=== PATIENT | female | born 1950 | race Caucasian/White ===

== ENCOUNTER → 2016-09-05 | Outpatient (CLI) | payer MEDICARE ==
--- NOTE | 2016-09-05 14:27 | US ---
EXAMINATION TYPE: US thyroid st tissue head/neck DATE OF EXAM: 09/05/2016 1:36 PM COMPARISON: 07/28/2015 CLINICAL HISTORY: 66-year-old female E04.1 Thyroid nodule. Follow-up thyroid nodules, left thyroidect harsha. TECHNIQUE: Multiple sonographic images of the thyroid gland are obtained. FINDINGS: GLAND SIZE: Right Lobe: 5.2 x 1.9 x 2.2 cm Overall Parenchyma: homogenous Left Lobe: surgically absent NODULES RIGHT: # of nodules measured on right: 3 1. 2.3 X 1.0 x 1.5 cm hypoechoic solid nodule at the mid/lower pole with well-defined margins. Thi s nodule is wider than tall and shows intranodular vascularity. Prior size: 2.1 x 1.0 x 1.4 cm 2. 0.6 X 0.6 x 0.6 cm hypoechoic solid nodule at the mid pole with well-defined margins; with periph eral calcification. This nodule shows no intranodular vascularity. Prior size: 0.5 x 0.6 x 0.5 cm 3. 0.6 X 0.4 x 0.4 cm colloid cyst at the lower pole. This shows no intranodular vascularity. Prior size: 0.5 x 0.3 x 0.3 cm LEFT: # of nodules measured on left: 0 ISTHMUS: # of nodules measured in the isthmus: 0 Bilateral neck scanned, no evidence of lymphadenopathy. IMPRESSION: 1. Status post left thyroidectomy. 2. The dominant solid nodule in the right lobe is stable to minimally larger at 2.3 x 1.5 cm versus 2 .1 x 1.4 cm, previously.
== END | disposition home or self-care (01) ==
LOC: RADUSWWP 13:20
PROVIDERS: ATTEND Internal Medicine
DX: E04.1 Nontoxic single thyroid nodule (principal); Z98.890 Other specified postprocedural states
CPT/HCPCS: 76536

== ENCOUNTER → 2017-09-01 | Outpatient (CLI) | payer MEDICARE ==
--- NOTE | 2017-09-01 16:01 | US ---
EXAMINATION TYPE: US thyroid st tissue head/neck DATE OF EXAM: 09/01/2017 COMPARISON: 09/05/2016 CLINICAL HISTORY: E04.1 THYROID NODULE. Left thyroid and isthmus removed x 40 years ago. Follow up n odules. No thyroid medication. GLAND SIZE: Right Lobe: 4.4 x 2.1 x 1.7 cm Overall Parenchyma: homogenous Left Lobe: Surgically absent Isthmus Thickness: Surgically absent NODULES RIGHT: # of nodules measured on right: 3 1. 2.5 X 1.9 x 1.1 cm hypoechoic solid nodule at the mid/lower pole with well-defined margins. Thi s nodule is taller than wide and shows intranodular vascularity. Prior size: 2.3 x 1.0 x 1.5 cm 2. 0.6 X 0.6 x 0.6 cm hypoechoic solid nodule at the mid pole with well-defined margins with periphe ral calcification. This nodule shows no intranodular vascularity. Prior size: 0.6 x 0.6 x 0.6 cm 3. 0.6 X 0.5 x 0.4 cm hypoechoic cystic nodule at the lower pole with well-defined margins. This no dule is taller than wide and shows no intranodular vascularity. Prior size: 0.6 x 0.5 x 0.4 cm Left thyroid and isthmus are surgically absent Bilateral neck scanned, no evidence of lymphadenopathy. IMPRESSION: 1. Changes of left-sided thyroid lobectomy 2. Stable nonspecific right-sided. Thyroid nodules. The need to biopsy should be made on a clinical b asis.
== END | disposition home or self-care (01) ==
LOC: RADUSWWP 15:26
PROVIDERS: ATTEND Internal Medicine
DX: E04.2 Nontoxic multinodular goiter (principal); Z98.890 Other specified postprocedural states
CPT/HCPCS: 76536

== ENCOUNTER → 2018-11-07 | Outpatient (CLI) | payer MEDICARE ==
--- NOTE | 2018-11-08 06:11 | US ---
EXAMINATION TYPE: US thyroid st tissue head/neck DATE OF EXAM: 11/07/2018 COMPARISON: US 09/01/2017 CLINICAL HISTORY: 68-year-old female E04.1 Thyroid Nodule. TECHNIQUE: Multiple sonographic images of the thyroid gland are obtained. FINDINGS: GLAND SIZE: Right Lobe: 4.9 x 2.1 x 2.2 cm Overall Parenchyma: homogenous Left Lobe: Surgically absent Isthmus Thickness: 0.2 cm NODULES RIGHT: # of nodules measured on right: 3 1. 2.5 X 1.6 x 1.6 cm hypoechoic solid nodule at the mid pole with well-defined margins. This nodu le is wider than tall and shows intranodular vascularity. Prior size: 2.5 x 1.9 x 1.1 cm 2. 0.6 calcification at the mid pole with well-defined margins; . This nodule is wider than tall and shows no intranodular vascularity. Prior size: 0.6 cm 3. 0.7 X 0.4 x 0.7 cm cyst at the mid pole with well-defined margins. This nodule is wider than renny l and shows no intranodular vascularity. Prior size: 0.6 x 0.5 x 0.4 cm LEFT: # of nodules measured on left: 0 ISTHMUS: # of nodules measured in the isthmus: 0 Bilateral neck scanned, no evidence of lymphadenopathy. IMPRESSION: 1. Status post left thyroidectomy. 2. Dominant solid nodule in the right lobe measures 2.5 x 1.6 x 1.6 cm versus 2.5 x 1.9 x 1.1 cm, not significantly changed in the interval.
== END | disposition home or self-care (01) ==
LOC: RADUSWWP 16:02
PROVIDERS: ATTEND Internal Medicine
DX: E04.1 Nontoxic single thyroid nodule (principal); E89.0 Postprocedural hypothyroidism
CPT/HCPCS: 76536

== ENCOUNTER 2019-02-27 23:22 | Emergency (ER) | payer MEDICARE ==
[2019-02-27 23:30] VITALS: RESP 18; TEMP 97.8
[2019-02-27 23:52] LABS: Appearance,Urine Cloudy (Clear); Bilirubin,Urine Negative (Negative); Blood,Urine Large (Negative); Color,Urine Light Brown; Glucose,Urine (UA) Negative (Negative); Ketones,Urine Negative (Negative); Leukocyte Esterase,Urine Large (Negative); Nitrite,Urine Negative (Negative); PH, Urine 7.5 (5.0-8.0); Protein,Urine 2+ (Negative); RBC,Urine >182 /hpf (0-5); Specific Gravity,Urine 1.012 (1.001-1.035); Urobilinogen,Urine <2.0 mg/dL (<2.0)
[2019-02-27] MEDS ORDERED: NITROFURANTOIN MONOHYD/M-CRYST 100 MG CAP PO STA (23:52)
[2019-02-27] MEDS ORDERED: HYDROcodone/APAP 5-325MG 1 EACH TAB PO STA (23:52)
[2019-02-27] MEDS ORDERED: PHENAZOPYRIDINE 200 MG TAB PO STA (23:52)
--- NOTE | 2019-02-28 00:29 | ED ---
Female Urogenital HPI - General Chief complaint: Urogenital Stated complaint: Poss UTI Time Seen by Provider: 02/27/19 23:34 Source: patient, family, RN notes reviewed, old records reviewed Mode of arrival: ambulatory Limitations: no limitations - History of Present Illness Initial comments: Patient is a 68-year-old female presents emergency department today for concern for 2 hours of dysuria and burning sensation in her urethra. She reports she's had history of UTIs in the past. She denies any flank pain or significant abdominal pain. Patient reports she's had polyuria today. She reports the end of her urination she has a severe pain. - Related Data Home Medications Medication Instructions Recorded Confirmed Aspirin 81 mg PO DAILY 01/02/14 01/07/14 Atorvastatin Calcium [Lipitor] 10 mg PO DAILY 01/02/14 01/07/14 Bisoprol/Hydrochlorothiazide [Ziac 1 each PO DAILY 01/02/14 01/07/14 5-6.25 MG] Cyanocobalamin [Vitamin B-12] 1,000 mcg PO DAILY@1200 01/02/14 01/07/14 Fish Oil/Dha/Epa [Fish Oil 1,200 1 each PO DAILY 01/02/14 01/07/14 mg Fish Oil] Ubidecarenone [Coenzyme Q10] 100 mg PO DAILY 01/02/14 01/07/14 Previous Rx's Medication Instructions Recorded Nitrofurantoin Monohyd/M-Cryst 100 mg PO Q12HR #14 cap 02/28/19 [Macrobid] Phenazopyridine [Pyridium] 100 mg PO TID #9 tablet 02/28/19 Allergies Allergy/AdvReac Type Severity Reaction Status Date / Time No Known Allergies Allergy Verified 02/27/19 23:30 Review of Systems ROS Statement: Those systems with pertinent positive or pertinent negative responses have been documented in the HPI. ROS Other: All systems not noted in ROS Statement are negative. Past Medical History Past Medical History: Hypertension Additional Past Medical History / Comment(s): Cerebral aneursym X2 History of Any Multi-Drug Resistant Organisms: None Reported Past Surgical History: Section Additional Past Surgical History / Comment(s): clipping of cerebral aneurysm X2 and coiling, hemrrhoidectomy, left thyroidectomy Past Anesthesia/Blood Transfusion Reactions: No Reported Reaction Past Psychological History: No Psychological Hx Reported Smoking Status: Never smoker Past Alcohol Use History: Occasional Past Drug Use History: None Reported - Past Family History Mother Family Medical History: CVA/TIA General Exam - General Exam Comments Initial Comments: Pleasant 68-year-old female. No significant distress. Limitations: no limitations General appearance: alert Head exam: Present: atraumatic Eye exam: Present: normal appearance, PERRL, EOMI. Absent: scleral icterus, conjunctival injection, periorbital swelling ENT exam: Present: normal exam, mucous membranes moist Neck exam: Present: normal inspection. Absent: tenderness, meningismus, lymphadenopathy Respiratory exam: Present: normal lung sounds bilaterally. Absent: respiratory distress, wheezes, rales, rhonchi, stridor Cardiovascular Exam: Present: regular rate, normal rhythm, normal heart sounds. Absent: systolic murmur, diastolic murmur, rubs, gallop, clicks GI/Abdominal exam: Present: soft, normal bowel sounds. Absent: distended, tenderness, guarding, rebound, rigid Back exam: Present: normal inspection Neurological exam: Present: alert, oriented X3, CN II-XII intact Course Vital Signs 02/27/19 02/28/19 23:26 00:39 Temperature 97.8 F Pulse Rate 60 52 L Respiratory 18 18 Rate Blood Pressure 221/93 180/85 O2 Sat by Pulse 98 98 Oximetry Medical Decision Making - Medical Decision Making 60-year-old female presents with 2 hours of suprapubic pain, and complains of burning sensation with urination. Patient has never had a UTI before. Patient's urinalysis is positive for infection. She has no flank pain no fever. No nausea or vomiting. She reports polyuria and pain at the end of her urination stream. Patient has been advised to put her on antibiotics and Pyridium. I discussed the Patient should follow-up promptly with primary care doctor. SHINS WERE ANSWERED AND RETURN PARAMETERS WERE DISCUSSED. - Lab Data Lab Results 02/27/19 Range/Units 23:42 Urine Color Light Brown Urine Appearance Cloudy H (Clear) Urine pH 7.5 (5.0-8.0) Ur Specific [place] 1.012 (1.001-1.035) Urine Protein 2+ H (Negative) Urine Glucose (UA) Negative (Negative) Urine Ketones Negative (Negative) Urine Blood Large H (Negative) Urine Nitrite Negative (Negative) Urine Bilirubin Negative (Negative) Urine Urobilinogen <2.0 (<2.0) mg/dL Ur Leukocyte Esterase Large H (Negative) Urine RBC >182 H (0-5) /hpf Urine WBC >182 H (0-5) /hpf Disposition Clinical Impression: Cystitis, UTI (urinary tract infection) Disposition: HOME SELF-CARE Condition: Good Instructions (If sedation given, give patient instructions): Urinary Tract Infection in Women (ED) Additional Instructions: Please use medication as discussed. Please follow up with family doctor if symptoms have not improved over the next two days. Please return to the emergency room if your symptoms increase or worsen or for any other concerns. Prescriptions: Nitrofurantoin Monohyd/M-Cryst [Macrobid] 100 mg PO Q12HR #14 cap Phenazopyridine [Pyridium] 100 mg PO TID #9 tablet Is patient prescribed a controlled substance at d/c from ED?: No Referrals: Josh Shepard MD [Primary Care Provider] - 1-2 days Time of Disposition: 01:00
[2019-02-28 00:39] VITALS: BP 180/85; PULSE 52
[2019-02-28] MEDS ORDERED: ACET/COD 300 MG/30 MG STARTER PACK 6 TAB BTL PO STA ×2 (01:07→01:17)
== END 2019-02-28 01:37 | disposition home or self-care (01) ==
LOC: EC 23:22
DX: N30.90 Cystitis, unspecified without hematuria (principal); I10 Essential (primary) hypertension; Z79.82 Long term (current) use of aspirin; Z79.899 Other long term (current) drug therapy
CPT/HCPCS: 81001; 87086; 99284

== ENCOUNTER → 2019-10-22 | Outpatient (CLI) | payer MEDICARE | END | disposition home or self-care (01) | LOC: LABWHC1 08:28 | DX: Z86.79 Personal history of other diseases of the circulatory system (principal); Z98.890 Other specified postprocedural states ==

== ENCOUNTER → 2020-01-16 | Outpatient (CLI) | payer MEDICARE ==
--- NOTE | 2020-01-17 06:58 | US ---
EXAMINATION TYPE: US thyroid st tissue head/neck DATE OF EXAM: 01/16/2020 COMPARISON: US 11/07/2018 CLINICAL HISTORY: E04.1 Thyroid nodule. Left lobe surgically absent GLAND SIZE: Right Lobe: 5.0 x 2.4 x 2.2 cm Overall Parenchyma: homogenous Left Lobe: Surgically absent cm Isthmus Thickness: 0.4 cm NODULES RIGHT: # of nodules measured on right: 1 1. 2.8 X 1.6 x 2.3 cm hypoechoic solid nodule at the mid pole with well-defined margins; . This no dule is wider than tall and shows intranodular vascularity. Prior size: 2.5 x 1.6 x 1.6 cm LEFT: # of nodules measured on left: 0 ISTHMUS: # of nodules measured in the isthmus: 0 Bilateral neck scanned, no evidence of lymphadenopathy. Calcification noted right thyroid IMPRESSION: 1. Left-sided thyroidectomy changes. 2. Stable nonspecific solid nodule right thyroid lobe.
== END | disposition home or self-care (01) ==
LOC: RADUSWWP 15:34
PROVIDERS: ATTEND Internal Medicine
DX: E04.1 Nontoxic single thyroid nodule (principal); E89.0 Postprocedural hypothyroidism
CPT/HCPCS: 76536

== ENCOUNTER → 2021-01-28 | Outpatient (CLI) | payer MEDICARE ==
--- NOTE | 2021-01-28 22:59 | CT ---
EXAMINATION TYPE: CT lumbar spine wo con DATE OF EXAM: 01/28/2021 6:01 PM COMPARISON: None HISTORY: Lower back pain. No prior CT DLP: 456.10 mGycm Automated exposure control for dose reduction was used. Unenhanced CT of the lumbar spine was performed. Bone and soft tissue window settings are submitted as well as coronal and sagittal reconstructions. There is levocurvature of the lumbar spine. No acute fracture. Vertebral body heights are normal. The re is multilevel disc space narrowing. There is moderate diffuse degenerative spurring of the endplat es. There is moderate neural foraminal narrowing at L5-S1 on the left and 3 L4 on the right. Mild vianca ral foraminal narrowing at L4-L5 on the left. There is some effacement of thecal sac by disc disease, likely without significant canal stenosis. Osteoporosis. The root of the mesentery demonstrates haziness and lymphadenopathy. IMPRESSION: 1. No acute fracture of the lumbar spine. 2. Degenerative disc disease and levocurvature. There are varying degrees of multilevel neural ynes inal narrowing as above. 3. Osteoporosis. 4. Haziness of the root of the mesentery with lymphadenopathy. Differential includes mesenteric pann iculitis.
== END | disposition home or self-care (01) ==
LOC: RADCTMAIN 17:44
PROVIDERS: ATTEND Orthopaedic Surgery Orthopaedic Surgery of the Spine
DX: M48.061 Spinal stenosis, lumbar region without neurogenic claudication (principal); M48.07 Spinal stenosis, lumbosacral region; M51.36 Other intervertebral disc degeneration, lumbar region; M81.0 Age-related osteoporosis without current pathological fracture; M54.06 Panniculitis affecting regions of neck and back, lumbar region; R59.0 Localized enlarged lymph nodes
CPT/HCPCS: 72131

== ENCOUNTER → 2021-02-19 | Outpatient (CLI) | payer MEDICARE ==
--- NOTE | 2021-02-21 08:33 | CT ---
EXAMINATION TYPE: CT abdomen pelvis wo con DATE OF EXAM: 02/19/2021 HISTORY: lymphadenopathy in abdomen, abnormalities on last CT CT DLP: 373.10 mGycm. Automated Exposure Control for Dose Reduction was Utilized. TECHNIQUE: CT scan of the abdomen and pelvis is performed without oral or IV contrast. COMPARISON: CT lumbar spine February 07, 2021 FINDINGS: Within the limitations of a non-contrast study, the following observations are made. LUNG BASES: Mild bibasilar linear scarring and/or atelectasis. LIVER/GB: No significant abnormality is appreciated. PANCREAS: No significant abnormality is seen. 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 ADRENALS: No significant abnormality is seen. KIDNEYS: No renal stones or hydronephrosis seen bilaterally. BOWEL: No significant abnormality is seen. GENITAL ORGANS: No gross abnormality seen. LYMPH NODES: Corresponding to recent CT lumbar spine there is haziness in the mid to lower abdomen ro ot of the mesentery with prominent and slightly enlarged lymph nodes for reference axial image 41 and coronal image 33. No suspicious pelvic or groin adenopathy. No suspicious retroperitoneal abdominal adenopathy. Findings beginning at the lower margin of the kidneys. OSSEOUS STRUCTURES: Moderate disc space narrowing near thoracolumbar junction with mild/moderate ante rior spurring. S-shaped scoliosis. Moderate axial joint space loss both hips. OTHER: Small fat-containing umbilical hernia. 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 Correlate clinically. Consider PET/CT foll ow-up based on clinical correlation. Consider hematology oncology referral. Spleen and liver noted no rmal in size.
== END | disposition home or self-care (01) ==
LOC: RADCTMAIN 17:24
PROVIDERS: ATTEND Internal Medicine
DX: M79.3 Panniculitis, unspecified (principal)
CPT/HCPCS: 74176

== ENCOUNTER → 2021-02-26 | Outpatient (CLI) | payer MEDICARE ==
--- NOTE | 2021-02-26 15:32 | US ---
EXAMINATION TYPE: US carotid duplex BILAT DATE OF EXAM: 02/26/2021 COMPARISON: NONE CLINICAL HISTORY: I65.29 carotid stenosis. EXAM MEASUREMENTS: RIGHT: Peak Systolic Velocity (PSV) cm/sec ----- Right CCA: 69.3 ----- Right ICA: 77.9 ----- Right ECA: 79.0 ICA/CCA ratio: 1.12 RIGHT: End Diastole cm/sec ----- Right CCA: 15.1 ----- Right ICA: 23.7 ----- Right ECA: 0.0 LEFT: Peak Systolic Velocity (PSV) cm/sec ----- Left CCA: 74.7 ----- Left ICA: 89.8 ----- Left ECA: 72.6 ICA/CCA ratio: 1.2 LEFT: End Diastole cm/sec ----- Left CCA: 18.8 ----- Left ICA: 29.6 ----- Left ECA: 8.0 VERTEBRALS (direction of flow): Right Vertebral: Antegrade Left Vertebral: Antegrade Rhythm: Normal No significant stenosis seen. IMPRESSION: 1. No significant hemodynamic stenosis. 2. Findings suggestive of a large right-sided thyroid nodule Criteria for Assigning % of Stenosis / Diameter reduction (Estimation based on the indirect measurements of the internal carotid artery velocities (ICA PSV). 1. Normal (no stenosis)=ICA PSV < 125 cm/s: ratio < 2.0: ICA EDV<40 cm/s. 2. Less than 50% stenosis=ICA PSV < 125 cm/s: ratio < 2.0: ICA EDV<40 cm/s. 3. 50 to 69% stenosis=ICA PSV of 125 to 230 cm/s: ration 2.0 ? 4.0: ICA EDV 40-100 cm/s. 4. Greater than 70% stenosis to near occlusion= ICA PSV > 230 cm/s: ratio > 4.0: ICA EDV > 100 cm/s. 5. Near occlusion= ICA PSV velocities may be low or undetectable: variable ratio and ICA EDV. 6. Total occlusion=unable to detect flow.
--- NOTE | 2021-02-26 15:38 | US ---
EXAMINATION TYPE: US thyroid st tissue head/neck DATE OF EXAM: 02/26/2021 COMPARISON: 01/16/2020 CLINICAL HISTORY: E04.1 Thyroid Nodule. GLAND SIZE: Right Lobe: 5.1 X 1.8 X 2.2 cm Overall Parenchyma: homogenous Left Lobe: Surgically absent Isthmus Thickness: 0.2 cm NODULES RIGHT: # of nodules measured on right: 1 1. 3.0 X 1.5 x 2.2 cm, mid lateral, solid or almost completely solid, hypoechoic nodule, which is w ider than tall, with smooth margins, without echogenic foci. Prior size: 2.8 x 1.6 x 2.3 cm ISTHMUS: # of nodules measured in the isthmus: 0 Bilateral neck scanned, no evidence of lymphadenopathy. IMPRESSION: Slight interval incremental increase in size of the previously noted right thyroid nodule. 2017 ACR TI-RADS LEVEL: TR-RADS 4 - Moderately Suspicious: Follow if > 1 cm, FNA if > 1.5 cm *Highest TI-RADS level nodule reported
== END | disposition home or self-care (01) ==
LOC: RADUSWWP 14:49
PROVIDERS: ATTEND Internal Medicine
DX: I65.29 Occlusion and stenosis of unspecified carotid artery (principal); E04.1 Nontoxic single thyroid nodule
CPT/HCPCS: 76536; 93880

== ENCOUNTER 2021-04-05 00:22 | Emergency (ER) | payer MEDICARE ==
[2021-04-05 01:40] VITALS: BP 156/71; PULSE 64; RESP 18; TEMP 99
[2021-04-05 02:02] LABS: Appearance,Urine Turbid (Clear); Bacteria,Urine Occasional /hpf; Bilirubin,Urine Negative (Negative); Blood,Urine Large (Negative); Color,Urine Light Brown; Glucose,Urine (UA) Negative (Negative); Ketones,Urine Negative (Negative); Leukocyte Esterase,Urine Large (Negative); Nitrite,Urine Negative (Negative); Protein,Urine 2+ (Negative); RBC,Urine >182 /hpf (0-5); Specific Gravity,Urine 1.019 (1.001-1.035); Urobilinogen,Urine <2.0 mg/dL (<2.0); WBC,Urine >182 /hpf (0-5)
[2021-04-05] MEDS ORDERED: PHENAZOPYRIDINE 200 MG TAB PO STA (02:35)
[2021-04-05] MEDS ORDERED: cefTRIAXone 1,000 MG VIAL (IM USE) IM STA (02:35)
[2021-04-05] MEDS ORDERED: ACETAMINOPHEN TAB 500 MG TAB PO STA (02:36)
--- NOTE | 2021-04-05 02:54 | ED ---
Female Urogenital HPI - General Chief complaint: Urogenital Stated complaint: UTI Time Seen by Provider: 04/05/21 01:50 Source: patient, RN notes reviewed Mode of arrival: ambulatory Limitations: no limitations - History of Present Illness Initial comments: Patient is a 71-year-old female presenting to the emergency Department with complaints of frequency, dysuria that started this evening. Patient states earlier today she felt her normal self. States about 11 PM started having some dysuria, urgency and had hematuria. She denies any abdominal pain. She states yesterday she did have a CT with contrast of her chest and is concerned that the diarrhea may have caused this. She has had UTIs in the past, none in the past couple months. She denies any fevers or chills, no nausea or vomiting. She has no further complaints at this time. Upon arrival to the ER her vitals are stable. - Related Data Home Medications Medication Instructions Recorded Confirmed Aspirin 81 mg PO DAILY 01/02/14 01/07/14 Atorvastatin Calcium [Lipitor] 10 mg PO DAILY 01/02/14 01/07/14 Bisoprol/Hydrochlorothiazide [Ziac 1 each PO DAILY 01/02/14 01/07/14 5-6.25 MG] Cyanocobalamin [Vitamin B-12] 1,000 mcg PO DAILY@1200 01/02/14 01/07/14 Fish Oil/Dha/Epa [Fish Oil 1,200 1 each PO DAILY 01/02/14 01/07/14 mg Fish Oil] Ubidecarenone [Coenzyme Q10] 100 mg PO DAILY 01/02/14 01/07/14 Previous Rx's Medication Instructions Recorded Nitrofurantoin Monohyd/M-Cryst 100 mg PO Q12HR #14 cap 02/28/19 [Macrobid] Phenazopyridine [Pyridium] 100 mg PO TID #9 tablet 02/28/19 Cephalexin [Keflex] 500 mg PO Q6HR 7 Days #28 cap 04/05/21 Allergies Allergy/AdvReac Type Severity Reaction Status Date / Time No Known Allergies Allergy Verified 04/05/21 01:40 Review of Systems ROS Statement: Those systems with pertinent positive or pertinent negative responses have been documented in the HPI. ROS Other: All systems not noted in ROS Statement are negative. Past Medical History Past Medical History: Hypertension Additional Past Medical History / Comment(s): Cerebral aneursym X2 History of Any Multi-Drug Resistant Organisms: None Reported Past Surgical History: Section Additional Past Surgical History / Comment(s): clipping of cerebral aneurysm X2 and coiling, hemrrhoidectomy, left thyroidectomy Past Anesthesia/Blood Transfusion Reactions: No Reported Reaction Past Psychological History: No Psychological Hx Reported Past Alcohol Use History: Occasional Past Drug Use History: None Reported - Past Family History Mother Family Medical History: CVA/TIA General Exam - General Exam Comments Initial Comments: GENERAL: Patient is well-developed and well-nourished. Patient is nontoxic and in no acute distress. HEAD: Atraumatic, normocephalic. EYES: Pupils equal round and reactive to light, extraocular movements intact, sclera anicteric, conjunctiva are normal. Eyelids were unremarkable. ENT: Moist mucous membranes. NECK: Normal range of motion, supple without lymphadenopathy or JVD. LUNGS: Unlabored respirations. Breath sounds clear to auscultation bilaterally and equal. No wheezes rales or rhonchi. HEART: Regular rate and rhythm without murmurs, rubs or gallops. ABDOMEN: Soft, mild suprapubic discomfort on palpation, normoactive bowel sounds. No guarding, no rebound. No masses appreciated. MUSCULOSKELETAL: Normal extremities with adequate strength and normal range of motion, no pitting or edema. No clubbing or cyanosis. NEUROLOGICAL: Patient is alert and oriented x 3. SKIN: Warm, Dry, normal turgor, no rashes or lesions noted. Limitations: no limitations Course Vital Signs 04/05/21 01:35 Temperature 99.0 F Pulse Rate 64 Respiratory 18 Rate Blood Pressure 156/71 O2 Sat by Pulse 98 Oximetry Medical Decision Making - Medical Decision Making Patient is a 71-year-old female here for dysuria, frequency and hematuria that started today. She has had UTIs in the past and this feels similar. Her vitals are stable, no fevers, no nausea or vomiting. Urine does have a large amount of hematuria, WBC clumps and bacteria. Urine culture is pending. I discussed these findings with the patient. Patient will be given 1 g of Rocephin, Pyridium and Tylenol here in the ER. I recommended continuing with Keflex and outpatient pending urine culture. She needs to follow up with her primary care. She is agreeable to this plan of care and she is stable for discharge. Return parameters were discussed with her and she verbalized understanding. - Lab Data Lab Results 04/05/21 Range/Units 01:43 Urine Color Light Brown Urine Appearance Turbid H (Clear) Urine pH 8.0 (5.0-8.0) Ur Specific [place] 1.019 (1.001-1.035) Urine Protein 2+ H (Negative) Urine Glucose (UA) Negative (Negative) Urine Ketones Negative (Negative) Urine Blood Large H (Negative) Urine Nitrite Negative (Negative) Urine Bilirubin Negative (Negative) Urine Urobilinogen <2.0 (<2.0) mg/dL Ur Leukocyte Esterase Large H (Negative) Urine RBC >182 H (0-5) /hpf Urine WBC >182 H (0-5) /hpf Urine WBC Clumps Many H (None) /hpf Urine Bacteria Occasional H (None) /hpf Disposition Clinical Impression: Urinary tract infection, Hematuria Disposition: HOME SELF-CARE Condition: Stable Instructions (If sedation given, give patient instructions): Urinary Tract Infection in Women (ED) Additional Instructions: Please return to the Emergency Department if symptoms worsen or any other concerns. Take antibiotics as prescribed. May take [id number] Azo for burning rel ief. Also take Tylenol. Please follow up with your primary care in 1-3 days. Prescriptions: Cephalexin [Keflex] 500 mg PO Q6HR 7 Days #28 cap Is patient prescribed a controlled substance at d/c from ED?: No Referrals: Dorian Loera MD [Primary Care Provider] - 1-2 days Time of Disposition: 02:54
== END 2021-04-05 03:11 | disposition home or self-care (01) ==
LOC: EC 00:22
DX: N39.0 Urinary tract infection, site not specified (principal); R31.9 Hematuria, unspecified; I10 Essential (primary) hypertension; Z79.899 Other long term (current) drug therapy
CPT/HCPCS: 81001; 87086; 99283; 96372; J0696; 87077; 87186

== ENCOUNTER → 2021-09-20 | Outpatient (CLI) | payer MEDICARE ==
[2021-09-20 23:09] LABS: Blood Urea Nitrogen 16.6 mg/dL (9.0-27.0); Non-African American GFR(CKD) 59.5 (60.0-200.0)
== END | disposition home or self-care (01) ==
LOC: LABWHC1 15:20
PROVIDERS: ATTEND Internal Medicine
DX: I10 Essential (primary) hypertension (principal)
CPT/HCPCS: 36415; 82565; 84520

== ENCOUNTER 2021-10-25 13:49 | Emergency (ER) | payer MEDICARE ==
[2021-10-25 14:08] VITALS: BP 150/70; PULSE 52; RESP 18; TEMP 98
[2021-10-25] MEDS ORDERED: MORPHINE SULFATE 2 MG/ML SYRINGE IVP STA (16:35)
--- NOTE | 2021-10-25 16:39 | ED ---
Upper Extremity HPI - General Chief Complaint: Extremity Injury, Upper Stated Complaint: Sent by urgent care/R hand Injury Time Seen by Provider: 10/25/21 15:06 Source: patient, RN notes reviewed Mode of arrival: ambulatory Limitations: no limitations - History of Present Illness Initial Comments: Patient is a pleasant 71-year-old female presents to the emergency room at the direction of urgent care where she presented after tripping and falling and landing on her bilateral hands earlier in the day. She reports that she underwent an x-ray of her right hand at urgent care who advised her that it was fractured and dislocated and needed treatment beyond the scope of practice at urgent care. She reports that her pain in the joint is significant. She denies any syncopal event prior to her fall. She is unsure when her last tetanus injection was. She reports that she did not have any imaging completed of her left hand which she has some swelling noted to her second digit but full range of motion. She has a past medical history significant for hypertension. She denies any other complaints or concerns at this time. - Related Data Home Medications Medication Instructions Recorded Confirmed Aspirin 81 mg PO DAILY 01/02/14 10/25/21 Bisoprol/Hydrochlorothiazide [Ziac 1 tab PO DAILY 01/02/14 10/25/21 5-6.25 MG] Rosuvastatin [Crestor] 10 mg PO DAILY 10/25/21 10/25/21 Previous Rx's Medication Instructions Recorded Cephalexin [Keflex] 500 mg PO Q8HR #21 cap 10/25/21 Cephalexin [Keflex] 500 mg PO Q8HR 1 Days #3 cap 10/25/21 HYDROcodone/APAP 5-325MG [Elton 1 tab PO Q6HR PRN 3 Days #12 tab 10/25/21 5-325] Allergies Allergy/AdvReac Type Severity Reaction Status Date / Time No Known Allergies Allergy Verified 10/25/21 16:05 Review of Systems ROS Statement: Those systems with pertinent positive or pertinent negative responses have been documented in the HPI. ROS Other: All systems not noted in ROS Statement are negative. Past Medical History Past Medical History: Hypertension Additional Past Medical History / Comment(s): Cerebral aneursym X2 History of Any Multi-Drug Resistant Organisms: None Reported Past Surgical History: Section Additional Past Surgical History / Comment(s): clipping of cerebral aneurysm X2 and coiling, hemrrhoidectomy, left thyroidectomy Past Anesthesia/Blood Transfusion Reactions: No Reported Reaction Past Psychological History: No Psychological Hx Reported Past Alcohol Use History: Occasional Past Drug Use History: None Reported - Past Family History Mother Family Medical History: CVA/TIA General Exam Limitations: no limitations General appearance: alert, in no apparent distress Head exam: Present: atraumatic, normocephalic, normal inspection Eye exam: Present: normal appearance, PERRL, EOMI. Absent: scleral icterus, conjunctival injection, periorbital swelling ENT exam: Present: normal exam, mucous membranes moist Extremities exam: Present: full ROM (Right thumb range of motion limited), tenderness, normal capillary refill, joint swelling (Right thumb and left 2nd digit swelling. Right thumb malalignment noted.) Neurological exam: Present: alert, oriented X3, CN II-XII intact Psychiatric exam: Present: normal affect, normal mood Skin exam: Present: warm, abrasion, other (Superficial laceration right thumb) Course Vital Signs 10/25/21 14:02 Temperature 98.0 F Pulse Rate 52 L Respiratory 18 Rate Blood Pressure 150/70 O2 Sat by Pulse 96 Oximetry Procedures - Orthopedic Splinting/Casting Injury #1 Upper Extremity Injury Location: short arm Upper Extremity Immobilizer: thumb spica Additional Comments: Wound cleansed neurovascular status intact. Pre and post-splint application tolerated well. Medical Decision Making - Medical Decision Making Repeat imaging of bilateral hands and wrists showed acute comminuted intra- articular fracture to the base of proximal middle phalange of the right thumb no dislocation and osteoarthritis. Superficial laceration cleansed. Tetanus administered due to unknown last tetanus date. Dr. Ribeiro with or without discussed case and reviewed imaging recommended splinting with outpatient follow-up soon with Dr. Clemente. - Radiology Data Radiology results: report reviewed, image reviewed Disposition Clinical Impression: Fracture of phalanx of finger Disposition: HOME SELF-CARE Condition: Stable Instructions (If sedation given, give patient instructions): Hand Fracture (ED) Additional Instructions: Please return to the Emergency Department if symptoms worsen or any other concerns. Prescriptions: Cephalexin [Keflex] 500 mg PO Q8HR 1 Days #3 cap Cephalexin [Keflex] 500 mg PO Q8HR #21 cap HYDROcodone/APAP 5-325MG [Elton 5-325] 1 tab PO Q6HR PRN 3 Days #12 tab PRN Reason: Pain Is patient prescribed a controlled substance at d/c from ED?: Yes When asked, does pt state using other controlled substances?: No If prescribed controlled substance>3 days was MAPS reviewed?: Prescribed <3 Days If opioid is for acute pain is fill amount 7 days or less?: Yes If Rx opioid, was Start Talking consent form obtained?: Yes Referrals: Dorian Loera MD [Primary Care Provider] - 1-2 days Ivania Clemente DO [Doctor of Osteopathic Medicine] - 1-2 days Time of Disposition: 18:17
[2021-10-25] MEDS ORDERED: MORPHINE SULFATE 2 MG/ML SYRINGE IM STA (16:52)
--- NOTE | 2021-10-25 17:17 | XR ---
EXAMINATION TYPE: XR hand complete bilateral DATE OF EXAM: 10/25/2021 COMPARISON: NONE HISTORY: Pain TECHNIQUE: 7 views FINDINGS: There is narrowing and spurring at the DIP joints of the digits. Metacarpals are intact. Th e carpal bones are intact. There is no subluxation. There is a comminuted transverse fracture of the base of the proximal phalanx of the right thumb. The re is extension of fracture line to the MP joint. There is bilateral spurring at the first carpometac arpal joints. The radiocarpal joints are intact. IMPRESSION: Acute comminuted intra-articular fracture of the base of the proximal phalanx of the righ t thumb. No dislocation. Osteoarthritis.
--- NOTE | 2021-10-25 17:19 | XR ---
EXAMINATION TYPE: XR wrist complete RT DATE OF EXAM: 10/25/2021 COMPARISON: NONE HISTORY: Pain TECHNIQUE: 4 views FINDINGS: Carpal bones are intact. There is mild spurring at the first carpometacarpal joint. Radioca rpal joint is intact. IMPRESSION: No evidence of a wrist joint fracture.
[2021-10-25] MEDS ORDERED: DIPH,PERTUS(ACELL)TETVAC-LF 0.5 ML VIAL IM ONE (17:42)
[2021-10-25] MEDS ORDERED: LIDOCAINE 1% INJ 10MG/ML (5 ML VIAL-PF) SQ STA (17:51)
== END 2021-10-25 18:30 | disposition home or self-care (01) ==
LOC: EC 13:49
DX: S62.511A Displaced fracture of proximal phalanx of right thumb, initial encounter for closed fracture (principal); I10 Essential (primary) hypertension; Z79.82 Long term (current) use of aspirin; Z79.899 Other long term (current) drug therapy; Z23 Encounter for immunization; W01.0XXA Fall on same level from slipping, tripping and stumbling without subsequent striking against object, initial encounter; Y92.89 Other specified places as the place of occurrence of the external cause
CPT/HCPCS: 73130; 73110; 90715; 99283; 29125; 90471; 96372; J2270

== ENCOUNTER → 2021-10-28 | Outpatient (CLI) | payer MEDICARE | END | disposition home or self-care (01) | LOC: RADCTMAIN 14:48 | PROVIDERS: ATTEND Internal Medicine Hematology & Oncology | DX: R59.0 Localized enlarged lymph nodes (principal) | CPT/HCPCS: 82565; 84520; 74177; 36415; Q9967 ==

== ENCOUNTER → 2021-12-06 | Outpatient (CLI) | payer MEDICARE ==
--- NOTE | 2021-12-06 11:31 | BD ---
EXAMINATION TYPE: Axial Bone Density DATE OF EXAM: 12/06/2021 COMPARISON: FIRST DEXA AT [facility] CLINICAL HISTORY: 71 years year old Female. ICD-10 CODE: Z13.820 ENCOUNTER FOR SCREENING FOR OSTEOPO ROSIS Height: 5 Weight: 147 FRAX RISK QUESTIONS: History of Fracture in Adulthood: YES Secondary Osteoporosis: RISK FACTORS HISTORY OF: Active: YES Postmenopausal woman: YES MENOPAUSE AT 48 Lost more than 2 inches in height since high school: YES MEDICATIONS: Additional Medications: BP MEDS, CHOLESTEROL MEDS, CALCIUM, VIT D Additional History: RT HAND FX 2021 EXAM MEASUREMENTS: Bone mineral densitometry was performed using the [employer] System. Bone mineral density as measured about the Lumbar spine is: ----- L1-L4(G/cm2): 1.086 T Score Values are as follows: ----- L1: -0.3 ----- L2: -1.0 ----- L3: -0.7 ----- L4: -1.2 ----- L1-L4: -0.8 BASELINE Bone mineral density about the R hip (g/cm2): 0.817 Bone mineral density about the L hip (g/cm2): 0.775 T Score values are as follows: -----R Neck: -2.0 -----L Neck: -2.4 -----R Total: -1.5 -----L Total: -1.8 FRAX%s: The graph provided illustrates a 22.8% chance for a major osteoporotic fx and a 5.9% chance f or the hips probability for fx in 10 years time. IMPRESSION: Osteopenia (T Score between -2.5 and -1). There is slightly increased risk of fracture and the patient may be considered for treatment. Re-Screen 2-5 years. NOTE: T-SCORE=SD OF THE YOUNG ADULT MEAN.
== END | disposition home or self-care (01) ==
LOC: RADBDWWP 10:25
PROVIDERS: ATTEND Internal Medicine Rheumatology
DX: Z13.820 Encounter for screening for osteoporosis (principal)
CPT/HCPCS: 77080

== ENCOUNTER → 2022-10-31 | Outpatient (CLI) | payer MEDICARE ==
--- NOTE | 2022-10-31 15:13 | US ---
EXAMINATION TYPE: US thyroid st tissue head/neck DATE OF EXAM: 10/31/2022 COMPARISON: NONE CLINICAL INDICATION: Female, 72 years old with history of E04.1 THYROID NODULE; thyroid nodules. left thyroidectomy GLAND SIZE: Right Lobe: 5.4 x 2.1 x 2.8 cm Overall Parenchyma: homogenous Left Lobe: Surgically absent NODULES RIGHT: # of nodules measured on right: 2 1. 3.4 X 1.7 x 2.8 cm, mid, solid or almost completely solid, hypoechoic nodule, which is wider emerita n tall, with smooth margins, without echogenic foci. Prior size: 3.1 x 2.0 x 1.9 cm 2. 0.6 X 0.5 x 0.6 cm, mid, hypoechoic, calcified nodule Prior size: 0.6 x 0.6 x 0.5 cm LEFT: # of nodules measured on left: surgically absent ISTHMUS: # of nodules measured in the isthmus: 0 Bilateral neck scanned, no evidence of lymphadenopathy. IMPRESSION: Stable nonspecific nodules right thyroid lobe. The left thyroid lobe is surgically absent.
== END | disposition home or self-care (01) ==
LOC: RADUSWWP 13:52
PROVIDERS: ATTEND Family Medicine
DX: E04.2 Nontoxic multinodular goiter (principal); E89.0 Postprocedural hypothyroidism
CPT/HCPCS: 76536

== ENCOUNTER → 2023-01-31 | Outpatient (CLI) | payer MEDICARE | END | disposition home or self-care (01) | LOC: LABWHC1 13:12 | PROVIDERS: ATTEND Internal Medicine | DX: Z53.9 Procedure and treatment not carried out, unspecified reason (principal) ==

== ENCOUNTER → 2023-02-01 | Outpatient (CLI) | payer MEDICARE ==
[2023-01-31 20:18] LABS: Appearance,Urine Clear (Clear); Bilirubin,Urine Negative (Negative); Blood,Urine Negative (Negative); Color,Urine Yellow (Yellow); Ketones,Urine Negative (Negative); Nitrite,Urine Negative (Negative); PH, Urine 6.5; Specific Gravity,Urine 1.014 (1.001-1.030); Urobilinogen,Urine 0.2 E.U./DL
[2023-01-31 21:28] LABS: Basophils # (A) 0.06 X 10*3/uL (0.00-0.10); Basophils % (A) 0.8 %; Eosinophils # (A) 0.18 X 10*3/uL (0.04-0.35); Eosinophils % (A) 2.3 %; HCT 49.7 % (37.2-46.3); HGB 17.3 d/dL (12.0-15.0); Lymphocytes # (A) 2.25 X 10*3/uL (0.90-5.00); Lymphocytes % (A) 28.3 %; MCH 30.9 pg (27.0-32.0); MCHC 34.8 d/dL (32.0-37.0); MCV 88.9 FL (80.0-97.0); Mean Platelet Volume 12.5 FL (9.5-12.2); Monocytes # (A) 0.37 X 10*3/uL (0.20-1.00); Monocytes % (A) 4.7 %; NRBC Per 100 WBC 0 X 10*3/uL (0.00-0.01); Neutrophils # (A) 5.05 X 10*3/uL (1.80-7.70); Neutrophils % (A) 63.5 %; Platelet Count 250 X 10*3/uL (140-440); RBC 5.59 X 10*6/uL (4.10-5.20); RDW 14.7 % (11.5-14.5); WBC 7.94 X 10*3/uL (4.50-10.00)
[2023-01-31 21:31] LABS: ALT 36 U/L (8-44); AST 28 U/L (13-35); Albumin 4.8 d/dL (3.8-4.9); Albumin/Globulin Ratio 2.29 Ratio (1.60-3.17); Alkaline Phosphatase 106 U/L (41-126); Calcium 10.6 mg/dL (8.7-10.3); Carbon Dioxide 22.5 mmol/L (21.6-31.8); Chloride 106 mmol/L (96-109); Globulin 2.1 d/dL (1.6-3.3); Glucose 141 mg/dL (70-110); Phosphorus 4.2 mg/dL (2.4-5.1); Potassium 4.5 mmol/L (3.5-5.5); Sodium 143 mmol/L (135-145); Total Bilirubin 0.5 mg/dL (0.3-1.2); Total Protein 6.9 d/dL (6.2-8.2)
[2023-01-31 23:26] LABS: Microalbumin Creatinine Ratio <15 mg/g Cr (0-30); Urine Creatinine 79.6 mg/dL (28.0-217.0)
--- NOTE | 2023-02-02 12:53 | US ---
EXAMINATION TYPE: US kidneys/renal and bladder DATE OF EXAM: 02/01/2023 COMPARISON: NONE CLINICAL INDICATION: Female, 72 years old with history of N18.30 CHRONIC KIDNEY DISEASE, STAGE 3 UNSP ECIFIED; CKD 3 EXAM MEASUREMENTS: Right Kidney: 8.9 x 3.5 x 4.0 cm Left Kidney: 10.1 x 4.3 x 3.2 cm Right Kidney: No hydronephrosis or masses seen Left Kidney: No hydronephrosis or masses seen Bilateral renal cortical thinning. Bladder: Anechoic Bilateral Jets seen: yes Incidental echogenic liver parenchyma. IMPRESSION: Changes of chronic medical renal disease. No hydronephrosis. Incidental hepatic steatosis. Appropriate clinical management advised.
== END | disposition home or self-care (01) ==
LOC: RADUSWWP 15:52
PROVIDERS: ATTEND Internal Medicine
DX: N18.30 Chronic kidney disease, stage 3 unspecified (principal)
CPT/HCPCS: 76770; 80053; 81003; 82043; 82306; 82570; 84100; 84156; 85025

== ENCOUNTER → 2023-03-22 | Outpatient (CLI) | payer MEDICARE ==
[2023-03-22 16:29] LABS: Basophils # (A) 0.04 X 10*3/uL (0.00-0.10); Basophils % (A) 0.5 %; Eosinophils # (A) 0.18 X 10*3/uL (0.04-0.35); Eosinophils % (A) 2.4 %; HCT 46.2 % (37.2-46.3); HGB 16.1 d/dL (12.0-15.0); Lymphocytes # (A) 1.94 X 10*3/uL (0.90-5.00); Lymphocytes % (A) 26.1 %; MCHC 34.8 d/dL (32.0-37.0); Mean Platelet Volume 12.4 FL (9.5-12.2); Monocytes # (A) 0.52 X 10*3/uL (0.20-1.00); NRBC Per 100 WBC 0 X 10*3/uL (0.00-0.01); Neutrophils # (A) 4.71 X 10*3/uL (1.80-7.70); Neutrophils % (A) 63.6 %; Platelet Count 234 X 10*3/uL (140-440); RBC 5.19 X 10*6/uL (4.10-5.20); RDW 14.6 % (11.5-14.5); WBC 7.42 X 10*3/uL (4.50-10.00)
[2023-03-22 16:39] LABS: ALT 36 U/L (8-44); AST 29 U/L (13-35); Albumin 4.2 d/dL (3.8-4.9); Alkaline Phosphatase 91 U/L (41-126); Blood Urea Nitrogen 18.1 mg/dL (9.0-27.0); Calcium 10.3 mg/dL (8.7-10.3); Carbon Dioxide 24.2 mmol/L (21.6-31.8); Chloride 105 mmol/L (96-109); Glucose 98 mg/dL (70-110); Potassium 4.3 mmol/L (3.5-5.5); Sodium 139 mmol/L (135-145); Total Bilirubin 0.4 mg/dL (0.3-1.2); Total Protein 6.2 d/dL (6.2-8.2)
== END | disposition home or self-care (01) ==
LOC: LABWHC1 11:19
PROVIDERS: ATTEND Internal Medicine
DX: N18.30 Chronic kidney disease, stage 3 unspecified (principal)
CPT/HCPCS: 36415; 80053; 82306; 85025

== ENCOUNTER → 2023-08-22 | Outpatient (CLI) | payer MEDICARE ==
[2023-08-22 15:50] LABS: Creatinine,Urine Random 27.8 mg/dL; Protein/Creatinine Ratio,Urine 0.324
[2023-08-22 16:04] LABS: HCT 48.4 % (37.2-46.3); HGB 16.6 g/dL (12.0-15.0); MCH 30.5 pg (27.0-32.0); MCHC 34.3 g/dL (32.0-37.0); MCV 88.8 FL (80.0-97.0); Mean Platelet Volume 11.4 FL (9.5-12.2); NRBC Per 100 WBC 0 X 10*3/uL (0.00-0.01); Platelet Count 229 X 10*3/uL (140-440); RBC 5.45 X 10*6/uL (4.10-5.20); RDW 14.5 % (11.5-14.5)
[2023-08-22 16:42] LABS: ALT 40 U/L (8-44); AST 35 U/L (13-35); Albumin 4.6 g/dL (3.8-4.9); Albumin/Globulin Ratio 1.92 Ratio (1.60-3.17); Alkaline Phosphatase 106 U/L (41-126); Blood Urea Nitrogen 15.1 mg/dL (9.0-27.0); Chloride 105 mmol/L (96-109); Globulin 2.4 g/dL (1.6-3.3); Glucose 110 mg/dL (70-110); Potassium 4.2 mmol/L (3.5-5.5); Sodium 143 mmol/L (135-145); Total Bilirubin 0.5 mg/dL (0.3-1.2)
[2023-08-22 20:11] LABS: Appearance,Urine Clear (Clear); Bilirubin,Urine Negative (Negative); Blood,Urine Negative (Negative); Color,Urine Yellow (Yellow); Ketones,Urine Negative (Negative); Nitrite,Urine Negative (Negative); Specific Gravity,Urine 1.006 (1.001-1.030); Urobilinogen,Urine 0.2 E.U./DL
[2023-08-22 20:18] LABS: Bacteria,Urine None Seen (None Seen)
[2023-08-22 22:12] LABS: Microalbumin Creatinine Ratio <43 mg/g Cr (0-30); Urine Creatinine 27.7 mg/dL (28.0-217.0)
== END | disposition home or self-care (01) ==
LOC: LABWHC1 12:01
PROVIDERS: ATTEND Internal Medicine
DX: N18.30 Chronic kidney disease, stage 3 unspecified (principal)
CPT/HCPCS: 36415; 80053; 81001; 82043; 82306; 82570; 84100; 84156; 85027

== ENCOUNTER → 2023-12-07 | Outpatient (CLI) | payer MEDICARE ==
[2023-12-07 12:13] LABS: Creatinine,Urine Random 158.4 mg/dL
[2023-12-07 15:10] LABS: HCT 46.8 % (37.2-46.3); HGB 16.3 g/dL (12.0-15.0); MCH 30.8 pg (27.0-32.0); MCHC 34.8 g/dL (32.0-37.0); MCV 88.3 FL (80.0-97.0); Mean Platelet Volume 11.9 FL (9.5-12.2); NRBC Per 100 WBC 0 X 10*3/uL (0.00-0.01); Platelet Count 219 X 10*3/uL (140-440); RDW 14.5 % (11.5-14.5); WBC 7.83 X 10*3/uL (4.50-10.00)
[2023-12-07 15:27] LABS: Appearance,Urine Clear (Clear); Bilirubin,Urine Negative (Negative); Blood,Urine Negative (Negative); Color,Urine Dark Yellow (Yellow); Ketones,Urine Negative (Negative); Nitrite,Urine Negative (Negative); Specific Gravity,Urine 1.021 (1.001-1.030); Urobilinogen,Urine 0.2 E.U./DL
[2023-12-07 15:31] LABS: Bacteria,Urine None Seen (None Seen)
[2023-12-07 15:49] LABS: ALT 43 U/L (8-44); AST 33 U/L (13-35); Albumin 4.3 g/dL (3.8-4.9); Albumin/Globulin Ratio 2.05 Ratio (1.60-3.17); Alkaline Phosphatase 104 U/L (41-126); BUN/Creat Ratio 16.11 Ratio (12.00-20.00); Blood Urea Nitrogen 14.5 mg/dL (9.0-27.0); Calcium 9.8 mg/dL (8.7-10.3); Carbon Dioxide 20.7 mmol/L (21.6-31.8); Chloride 109 mmol/L (96-109); Globulin 2.1 g/dL (1.6-3.3); Glucose 112 mg/dL (70-110); Phosphorus 4.1 mg/dL (2.4-5.1); Potassium 4.5 mmol/L (3.5-5.5); Sodium 142 mmol/L (135-145); Total Bilirubin 0.6 mg/dL (0.3-1.2); Total Protein 6.4 g/dL (6.2-8.2)
[2023-12-07 21:39] LABS: Microalbumin Creatinine Ratio <7 mg/g Cr (0-30)
== END | disposition home or self-care (01) ==
LOC: LABWHC1 10:43
PROVIDERS: ATTEND Internal Medicine
DX: E83.52 Hypercalcemia (principal); N18.30 Chronic kidney disease, stage 3 unspecified
CPT/HCPCS: 36415; 80053; 81001; 82043; 82306; 82570; 83970; 84100; 84156; 85027

== ENCOUNTER 2024-01-12 11:00 | Day surgery (SDC) | payer MEDICARE ==
[2024-01-12] MEDS ORDERED: LACTATED RINGERS 1,000 ML BAG ONE (13:40)
[2024-01-12] MEDS ORDERED: PROPOFOL 10 MG/ML 20 ML VIAL IV ONE (13:49)
[2024-01-12] MEDS ORDERED: LIDOCAINE 1% INJ 10MG/ML (20 ML MDV) ONE (13:49)
--- NOTE | 2024-01-12 20:53 | PCN ---
PROCEDURE NOTE BRIEF HISTORY: The patient is a 73-year-old pleasant white female scheduled for an elective upper endoscopy as a part of evaluation of a longstanding history of GERD of several years duration. Recently was started on omeprazole 20 mg daily and her symptoms are gradually improving. She is scheduled for an upper endoscopy to rule out complicated reflux disease. PROCEDURE PERFORMED: Esophagogastroduodenoscopy with biopsy. PREOPERATIVE DIAGNOSIS: Longstanding history of gastroesophageal reflux disease. ANESTHESIA: IV sedation per Anesthesia. DESCRIPTION OF PROCEDURE: After informed consent was obtained from the patient, she was brought into the endoscopy unit. IV conscious sedation was administered by Anesthesia under continuous monitoring. Initially, the Olympus CF-180 video endoscope was inserted into the mouth, the esophagus was intubated without any difficulty, and was gradually advanced into the stomach and duodenum, and carefully examined. Bulb in the second part of duodenum appeared normal. The scope at this time was withdrawn to the stomach, adequately insufflated with air, and upon careful examination, mucosa of the antrum had very few patchy areas of erythema consistent with gastritis, and biopsies for H pylori were done. Body of the stomach appeared normal. On retroflexion, cardia and fundus appeared normal. Scope was then withdrawn to the esophagus. The GE junction was located at 39 cm from the incisors. There was a small hiatal hernia noted. Entire length of the esophagus appeared normal. There was no evidence of esophagitis or Yo esophagus, and the patient tolerated the procedure well. IMPRESSION: 1. Small hiatal hernia. 2. No evidence of esophagitis or Yo esophagus. 3. Mild antral gastritis. RECOMMENDATIONS: Findings of this examination were discussed with the patient as well as the family. She was advised to follow up with the biopsy results. Continue with omeprazole 20 mg daily and follow anti-reflux measures. MMODL / IJN: [id number] /
== END 2024-01-12 15:10 ==
LOC: ORWHC2ENDO 11:00
PROVIDERS: ATTEND Internal Medicine Gastroenterology
DX: K31.9 Disease of stomach and duodenum, unspecified (principal); K21.9 Gastro-esophageal reflux disease without esophagitis; K44.9 Diaphragmatic hernia without obstruction or gangrene; I10 Essential (primary) hypertension; E78.5 Hyperlipidemia, unspecified; C85.90 Non-Hodgkin lymphoma, unspecified, unspecified site; Z98.890 Other specified postprocedural states; Z79.899 Other long term (current) drug therapy
CPT/HCPCS: 43239; 88305

== ENCOUNTER → 2024-03-26 | Outpatient (CLI) | payer MEDICARE ==
[2024-03-26 14:44] LABS: Creatinine,Urine Random 29.2 mg/dL; Protein/Creatinine Ratio,Urine 0.274
[2024-03-26 19:12] LABS: HCT 45.2 % (37.2-46.3); HGB 15.9 g/dL (12.0-15.0); MCH 30.8 pg (27.0-32.0); MCHC 35.2 g/dL (32.0-37.0); MCV 87.4 FL (80.0-97.0); Mean Platelet Volume 12.4 FL (9.5-12.2); NRBC Per 100 WBC 0 X 10*3/uL (0.00-0.01); Platelet Count 214 X 10*3/uL (140-440); RBC 5.17 X 10*6/uL (4.10-5.20); RDW 14.4 % (11.5-14.5); WBC 8.06 X 10*3/uL (4.50-10.00)
[2024-03-26 19:13] LABS: Appearance,Urine Clear (Clear); Bilirubin,Urine Negative (Negative); Blood,Urine Negative (Negative); Color,Urine Yellow (Yellow); Ketones,Urine Negative (Negative); Nitrite,Urine Negative (Negative); PH, Urine 6.5; Specific Gravity,Urine 1.007 (1.001-1.030); Urobilinogen,Urine 0.2 E.U./DL
[2024-03-26 19:37] LABS: ALT 28 U/L (8-44); AST 28 U/L (13-35); Albumin 4.3 g/dL (3.8-4.9); Albumin/Globulin Ratio 1.87 Ratio (1.60-3.17); Alkaline Phosphatase 113 U/L (41-126); BUN/Creat Ratio 17.44 Ratio (12.00-20.00); Blood Urea Nitrogen 15.7 mg/dL (9.0-27.0); Calcium 10.1 mg/dL (8.7-10.3); Carbon Dioxide 21.2 mmol/L (21.6-31.8); Chloride 106 mmol/L (96-109); Globulin 2.3 g/dL (1.6-3.3); Glucose 90 mg/dL (70-110); Potassium 4.6 mmol/L (3.5-5.5); Sodium 139 mmol/L (135-145); Total Bilirubin 0.3 mg/dL (0.3-1.2); Total Protein 6.6 g/dL (6.2-8.2)
[2024-03-26 23:17] LABS: Microalbumin Creatinine Ratio <39 mg/g Cr (0-30); Urine Creatinine 30.4 mg/dL (28.0-217.0)
== END | disposition home or self-care (01) ==
LOC: LABWHC1 11:59
PROVIDERS: ATTEND Internal Medicine
DX: E83.52 Hypercalcemia (principal); N18.30 Chronic kidney disease, stage 3 unspecified
CPT/HCPCS: 36415; 80053; 81003; 82043; 82306; 82570; 83519; 83970; 84100; 84156; 85027

== ENCOUNTER → 2024-09-19 | Outpatient (CLI) | payer MEDICARE ==
[2024-09-19 20:45] LABS: HCT 48.3 % (37.2-46.3); HGB 16.4 g/dL (12.0-15.0); MCH 31.1 pg (27.0-32.0); MCV 91.5 FL (80.0-97.0); Mean Platelet Volume 11.6 FL (9.5-12.2); NRBC Per 100 WBC 0 X 10*3/uL (0.00-0.01); Platelet Count 246 X 10*3/uL (140-440); RBC 5.28 X 10*6/uL (4.10-5.20); RDW 14.6 % (11.5-14.5); WBC 8.22 X 10*3/uL (4.50-10.00)
[2024-09-19 21:44] LABS: ALT 28 U/L (8-44); AST 28 U/L (13-35); Albumin 4.3 g/dL (3.8-4.9); Albumin/Globulin Ratio 2.15 Ratio (1.60-3.17); Alkaline Phosphatase 113 U/L (41-126); Blood Urea Nitrogen 12.8 mg/dL (9.0-27.0); Calcium 10.2 mg/dL (8.7-10.3); Carbon Dioxide 23.1 mmol/L (21.6-31.8); Chloride 106 mmol/L (96-109); Glucose 105 mg/dL (70-110); Sodium 142 mmol/L (135-145); Total Bilirubin 0.5 mg/dL (0.3-1.2); Total Protein 6.3 g/dL (6.2-8.2)
[2024-09-19 22:32] LABS: Microalbumin Creatinine Ratio <7 mg/g Cr (0-30)
[2024-09-20 03:27] LABS: Appearance,Urine Clear (Clear); Bilirubin,Urine Negative (Negative); Blood,Urine Negative (Negative); Color,Urine Yellow (Yellow); Ketones,Urine Negative (Negative); Nitrite,Urine Negative (Negative); PH, Urine 5.5; Specific Gravity,Urine 1.018 (1.001-1.030); Urobilinogen,Urine 0.2 E.U./DL
[2024-09-20 03:59] LABS: Bacteria,Urine None Seen (None Seen); Calcium Oxalate Crystals,Urine Present (None Seen)
== END | disposition home or self-care (01) ==
LOC: LABWHC1 12:51
PROVIDERS: ATTEND Internal Medicine
DX: N18.30 Chronic kidney disease, stage 3 unspecified (principal); E83.52 Hypercalcemia
CPT/HCPCS: 36415; 80053; 81001; 82043; 82306; 82570; 83970; 85027

== ENCOUNTER → 2024-10-30 | Outpatient (CLI) | payer MEDICARE ==
[2024-10-30 14:18] LABS: Creatinine,Urine Random 234.9 mg/dL
[2024-10-30 18:20] LABS: Basophils # (A) 0.06 X 10*3/uL (0.00-0.10); Basophils % (A) 0.7 %; Eosinophils # (A) 0.14 X 10*3/uL (0.04-0.35); Eosinophils % (A) 1.7 %; HCT 46.3 % (37.2-46.3); Lymphocytes # (A) 1.76 X 10*3/uL (0.90-5.00); Lymphocytes % (A) 21.2 %; MCH 31.1 pg (27.0-32.0); MCHC 34.6 g/dL (32.0-37.0); MCV 89.9 FL (80.0-97.0); Mean Platelet Volume 11.9 FL (9.5-12.2); Monocytes # (A) 0.42 X 10*3/uL (0.20-1.00); Monocytes % (A) 5.1 %; NRBC Per 100 WBC 0 X 10*3/uL (0.00-0.01); Neutrophils # (A) 5.91 X 10*3/uL (1.80-7.70); Neutrophils % (A) 71.1 %; Platelet Count 232 X 10*3/uL (140-440); RBC 5.15 X 10*6/uL (4.10-5.20); RDW 14.2 % (11.5-14.5); WBC 8.31 X 10*3/uL (4.50-10.00)
[2024-10-30 19:02] LABS: Appearance,Urine Clear (Clear); Bilirubin,Urine Small (Negative); Blood,Urine Negative (Negative); Color,Urine Dark Yellow (Yellow); Ketones,Urine Trace (Negative); Nitrite,Urine Negative (Negative); PH, Urine 5.5; Specific Gravity,Urine 1.023 (1.001-1.030)
[2024-10-30 19:12] LABS: Bacteria,Urine None Seen (None Seen)
[2024-10-30 19:58] LABS: ALT 30 U/L (8-44); AST 31 U/L (13-35); Albumin 4.2 g/dL (3.8-4.9); Albumin/Globulin Ratio 2.21 Ratio (1.60-3.17); Alkaline Phosphatase 100 U/L (41-126); BUN/Creat Ratio 17.73 Ratio (12.00-20.00); Blood Urea Nitrogen 19.5 mg/dL (9.0-27.0); Carbon Dioxide 21.6 mmol/L (21.6-31.8); Chloride 112 mmol/L (96-109); Globulin 1.9 g/dL (1.6-3.3); Glucose 130 mg/dL (70-110); Phosphorus 3.3 mg/dL (2.4-5.1); Sodium 147 mmol/L (135-145); Total Bilirubin 0.7 mg/dL (0.3-1.2); Total Protein 6.1 g/dL (6.2-8.2)
== END | disposition home or self-care (01) ==
LOC: LABWHC1 13:25
PROVIDERS: ATTEND Internal Medicine
DX: E83.52 Hypercalcemia (principal); N18.30 Chronic kidney disease, stage 3 unspecified
CPT/HCPCS: 36415; 80053; 81001; 82043; 82306; 82570; 83970; 84100; 84156; 85025